=== PATIENT | female | born 1995 | race Hispanic/Latino ===

== ENCOUNTER 2016-07-20 14:35 | Emergency (ER) | payer OTHER ==
[2016-07-20] MEDS ORDERED: ACETAMINOPHEN 325 MG TAB As Ordered ONE (16:08)
[2016-07-20 16:24] LABS: BASO # 0.2 K/mm3 (0.0-0.2); BASO % 1.9 % (0.0-1.0); EOS # 0.2 K/mm3 (0.0-0.50); EOS % 1.6 % (0.0-3.0); LARGE UNSTAINED CELL # 0.1 K/mm3 (0.0-0.4); LARGE UNSTAINED CELL % 1.4 % (0.0-4.0); LYMPH # 2.9 K/mm3 (1.5-6.5); LYMPH % 28.5 % (24.0-44.0); MEAN CORPUSCULAR HGB CONC 31.6 g/dl (32.0-36.5); MEAN CORPUSCULAR VOLUME 91.9 fl (80.0-96.0); MONO # 0.5 K/mm3 (0.0-0.8); MONO % 4.8 % (0.0-5.0); NEUTROPHILS % 61.9 % (36.0-66.0); PLATELET COUNT, AUTOMATED 385 k/mm3 (150-450); RED CELL DISTRIBUTION WIDTH 13.1 % (11.5-14.5); WHITE BLOOD COUNT 9.6 K/mm3 (4.0-10.0)
[2016-07-20 16:42] LABS: CONTROL LINE HCG INT CTR LINE PRESENT
[2016-07-20 16:45] LABS: ANION GAP 7 MEQ/L (8-16); BLOOD UREA NITROGEN 11 MG/DL (7-18); CALCIUM LEVEL 9.4 MG/DL (8.5-10.1); CARBON DIOXIDE LEVEL 28 MEQ/L (21-32); CHLORIDE LEVEL 107 MEQ/L (98-107); CREATININE FOR GFR 0.74 MG/DL (0.55-1.02); GLUCOSE, FASTING 90 MG/DL (70-105); SODIUM LEVEL 142 MEQ/L (136-145)
--- NOTE | 2016-07-20 17:41 | EDDOCDS ---
Physician Documentation [facility] Name: Ryan Adhikari Age: 20 yrs Sex: Female : 1995 Arrival Date: 07/20/2016 Time: 14:35 Bed PR Private MD: Other - Complete Info On Cds Disposition: 07/20/16 17:31 Discharged to Home/Self Care. Impression: Abdominal and pelvic pain, Irregular menstruation, unspecified. - Condition is Stable. - Discharge Instructions: Pelvic Pain, Female, Abnormal Uterine Bleeding, [id number]. - Medication Reconciliation, Local Pharmacy Hours form. - Follow up: Private Physician; When: Call to arrange an appointment; Reason: Recheck today's complaints, Continuance of care. Follow up: Schuyler Thompson MD; When: Call to arrange an appointment; Reason: Recheck today's complaints, Continuance of care. - Problem is an ongoing problem. - Symptoms are unchanged. Historical: - Allergies: No known drug Allergies; - Home Meds: 1. none - PMHx: none; - PSHx: oral surgery; - Social history: Smoking status: Patient states was never smoker of tobacco. No barriers to communication noted, The patient speaks fluent [place], Speaks appropriately for age. - Family history: Not pertinent. - : The pt / caregiver states he / she is not on anticoagulants. Home medication list is obtained from the patient. - Exposure Risk Screening:: None identified. 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 6 in. (167.64 cm); Pain 8/10; 16:14 BP 122 / 80 RA Sitting (auto/lg); Pulse 102; Resp 16; Pulse Ox 98% on R/A; Pain 7/10; sew 17:37 BP 129 / 74; Pulse 73; Resp 18; Temp 99.0(TE); Pulse Ox 96% on R/A; Pain 3/10; ck1 14:36 Body Mass Index 29.05 (81.65 kg, 167.64 cm) sew MDM: 14:52 UCG by Nursing ordered. ck1 14:53 UA Ordered. EDMS 14:53 Urine Culture Ordered. EDMS 15:14 UA Reviewed. sd1 16:06 Acetaminophen Tablet 975 mg PO once ordered. mo1 16:07 -US Pelvic Non-Ob Complete Ordered. EDMS 16:07 CBC with Diff Ordered. EDMS 16:07 BMP Ordered. EDMS 16:07 HCG,Serum Qualitative Ordered. EDMS 16:07 Rh Only Ordered. EDMS 16:07 DUPLEX SCAN LIMITED (DOPPLER)+US Ordered. EDMS 16:23 Transvaginal NON- US Ordered. EDMS 16:29 CBC with Diff Reviewed. mo1 16:49 Rh Only Reviewed. mo1 16:49 HCG,Serum Qualitative Reviewed. mo1 16:49 BMP Reviewed. mo1 17:30 [facility] Payment Agreement was scanned into [employer] and attached to record. [facility] 17:30 Financial registration complete. [facility] Point of Care Testing: Urine : 14:56 hCG Reading: Negative; Control Reading: Positive; mlb1 Ranges: Administered Medications: 16:11 Drug: Acetaminophen 975 mg [acetaminophen 325 mg tablet (3 tabs)] Route: PO; mlb1 Signatures: Dispatcher [employer] Estefani Knight MD MD sd1 Kika HillRN RN ck1 Meliton Ramos PA PA mo1 Kelsey Cavazos gjb Meliton Corbin RN mlb1 The chart was reviewed and I authenticate all verbal orders and agree with the evaluation and treatment provided.Attachments: 17:30 [facility] Payment Agreement [facility] MTDD
--- NOTE | 2016-07-20 17:41 | EDDOCDS ---
Nurse's Notes [facility] Name: Ryan Adhikari Age: 20 yrs Sex: Female : 1995 Arrival Date: 07/20/2016 Time: 14:35 Bed PR1 / 25 Private MD: Stephani - Complete Info On Cds Diagnosis: Abdominal and pelvic pain;Irregular menstruation, unspecified Presentation: 07/20 14:45 Presenting complaint: Patient states: No menstrual cycle for 2 months, pelvic pain ck1 since last month. Reports urinary frequency, denies burning or vaginal discharge. States could not get into PCP for test. Adult Sepsis Screening: The patient does not have new or worsening altered mentation. Patient's respiratory rate is less than 22. Systolic blood pressure is greater than 100. Patient has a qSOFA score of 0- Negative Sepsis Screen. Suicide/Homicide risk assessment- the patient denies having any suicidal and/or homicidal ideations and does not present with any other emotional, behavioral or mental health complaints. Status: The patient is a dependent. Transition of care: patient was not received from another setting of care. 14:45 Acuity: SALTY Level 3 ck1 14:45 Method Of Arrival: Walkin/Carried/Asstd ck1 Triage Assessment: 14:48 General: Appears in no apparent distress, comfortable, Behavior is appropriate for age, ck1 cooperative. Pain: Location: pelvis Pain currently is 8 out of 10 on a pain scale. HIV screening NA for this visit Offered previously. GI: Reports nausea. : Reports urinary frequency Denies burning with urination, discharge, vaginal bleeding. Derm: Skin is intact, is healthy with good turgor, Skin is pink, warm & dry. 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 none - PMHx: none; - PSHx: oral surgery; - Social history: Smoking status: Patient states was never smoker of tobacco. No barriers to communication noted, The patient speaks fluent Cameroonian, Speaks appropriately for age. - Family history: Not pertinent. - : The pt / caregiver states he / she is not on anticoagulants. Home medication list is obtained from the patient. - Exposure Risk Screening:: None identified. Screenin:27 Screening information is obtained from the patient. Fall risk: No risks identified. mlb1 Assistance ADL's: requires no assistance with activities of daily living. Abuse/DV Screen: The patient / caregiver reports he/she is: not in a situation that causes fear, pain or injury. Nutritional screening: No deficits noted. Advance Directives: Currently, there is no health care proxy. home support is adequate. Assessment: 17:39 General: Appears in no apparent distress, comfortable, Behavior is appropriate for age, ck1 cooperative. Pain: Location: pelvis Pain currently is 3 out of 10 on a pain scale. Neurological: Level of Consciousness is awake, alert, obeys commands, Oriented to person, place, time. Respiratory: Respiratory effort is unlabored, Respiratory pattern is regular, symmetrical. Derm: Skin is intact, is healthy with good turgor, Skin is pink, warm & dry. Vital Signs: 14:36 BP 166 / 96; Pulse 115; Resp 16; Temp 100.1(T); Pulse Ox 100% on R/A; Weight 81.65 kg; sew Height 5 ft. 6 in. (167.64 cm); Pain 8/10; 16:14 BP 122 / 80 RA Sitting (auto/lg); Pulse 102; Resp 16; Pulse Ox 98% on R/A; Pain 7/10; sew 17:37 BP 129 / 74; Pulse 73; Resp 18; Temp 99.0(TE); Pulse Ox 96% on R/A; Pain 3/10; ck1 14:36 Body Mass Index 29.05 (81.65 kg, 167.64 cm) [facility] Vitals: 14:36 Log In Time: July 20, 2016 at 14:20. [facility] ED Course: 14:36 Patient visited by Estefani Rai. sew 14:36 Other - Complete Info On Cds is Private Physician. sew 14:36 Patient moved to Waiting sew 14:38 Patient visited by Estefani Rai. sew 14:38 Patient moved to Pre RCE sew 14:47 Triage Initiated ck1 14:55 Urine Culture Sent. mlb1 14:55 UA Sent. mlb1 15:25 Patient moved to Triage 1 jrd 15:27 Patient visited by Kika Hill RN. ck1 15:59 Meliton Ramos PA is PHCP. mo1 15:59 Estefani Kulkarni MD is Attending Physician. mo1 16:05 Patient visited by Meliton Ramos PA. mo1 16:13 Rh Only Sent. mlb1 16:13 HCG,Serum Qualitative Sent. mlb1 16:13 BMP Sent. mlb1 16:13 CBC with Diff Sent. mlb1 16:15 Patient visited by Estefani Rai. sew 16:15 Patient moved to TR1 sew 17:19 Patient name changed from Valeriah\S\\S\Onofre\S\ to Valeriah\S\ \S\Onofre. EDMS 17:27 Patient moved to PR1 / 25 mlb1 17:30 ON LICENSE OF [facility] Payment Agreement was scanned into [employer] and attached to record. gjb 17:31 Patient visited by Kika Hill RN. ck1 17:31 Schuyler Thompson MD is Referral Physician. mo1 17:38 No IV's were initiated during this patient's visit. No procedures done that require ck1 assistance. 17:39 The patient / caregiver is instructed regarding the plan of care and ED course. ck1 Administered Medications: 16:11 Drug: Acetaminophen 975 mg [acetaminophen 325 mg tablet (3 tabs)] Route: PO; mlb1 Point of Care Testing: Urine : 14:56 hCG Reading: Negative; Control Reading: Positive; mlb1 Ranges: Order Results: Lab Order: UA; SPEC'M 07/20/16 14:54 Test: APPEARANCE, URINE; Value: CLEAR; Range: CLEAR; Status: F Test: COLOR, URINE; Value: YELLOW; Range: YELLOW; Status: F Test: PH,URINE; Value: 7.0; Range: 5.0-9.0; Units: UNITS; Status: F Test: SPECIFIC GRAVITY URINE AUTO; Value: 1.014; Range: 1.002-1.035; Status: F Test: PROTEIN, URINE AUTO; Value: NEGATIVE; Range: NEGATIVE; Units: mg/dL; Status: F Test: GLUCOSE, URINE (UA) AUTO; Value: NEGATIVE; Range: NEGATIVE; Units: mg/dL; Status: F Test: KETONE, URINE AUTO; Value: NEGATIVE; Range: NEGATIVE; Units: mg/dL; Status: F Test: UROBILINOGEN, URINE AUTO; Value: 0.2; Range: 0.0-2.0; Units: mg/dL; Status: F Test: BILIRUBIN, URINE AUTO; Value: NEGATIVE; Range: NEGATIVE; Status: F Test: NITRITE, URINE AUTO; Value: NEGATIVE; Range: NEGATIVE; Status: F Test: LEUKOCYTE ESTERASE, URINE AUTO; Value: NEGATIVE; Range: NEGATIVE; Status: F Test: BLOOD, URINE BLOOD; Value: 2+; Range: NEGATIVE; Abnormal: Above high normal; Status: F Test: WBC, URINE AUTO; Value: 2; Range: 0-3; Units: /HPF; Status: F Test: RBC, URINE AUTO; Value: 9; Range: 0-3; Abnormal: Above high normal; Units: /HPF; Status: F Test: BACTERIA, URINE AUTO; Value: 1+; Range: NEGATIVE; Abnormal: Above high normal; Status: F Test: SQUAMOUS EPITHELIAL CELL UR AU; Value: 5; Range: 0-6; Units: /HPF; Status: F Test: HYALINE CAST, URINE AUTO; Value: 0; Range: 0-1; Units: /LPF; Status: F Lab Order: CBC with Diff; SPEC'M 07/20/16 16:12 Test: WHITE BLOOD COUNT; Value: 9.6; Range: 4.0-10.0; Units: K/mm3; Status: F Test: RED BLOOD COUNT; Value: 4.87; Range: 4.00-5.40; Units: M/mm3; Status: F Test: HEMOGLOBIN; Value: 14.1; Range: 12.0-16.0; Units: g/dl; Status: F Test: HEMATOCRIT; Value: 44.8; Range: 36.0-47.0; Units: %; Status: F Test: MEAN CORPUSCULAR VOLUME; Value: 91.9; Range: 80.0-96.0; Units: fl; Status: F Test: MEAN CORPUSCULAR HEMOGLOBIN; Value: 29.0; Range: 27.0-33.0; Units: pg; Status: F Test: MEAN CORPUSCULAR HGB CONC; Value: 31.6; Range: 32.0-36.5; Abnormal: Below low normal; Units: g/dl; Status: F Test: RED CELL DISTRIBUTION WIDTH; Value: 13.1; Range: 11.5-14.5; Units: %; Status: F Test: PLATELET COUNT, AUTOMATED; Value: 385; Range: 150-450; Units: k/mm3; Status: F Test: NEUTROPHILS %; Value: 61.9; Range: 36.0-66.0; Units: %; Status: F Test: LYMPH %; Value: 28.5; Range: 24.0-44.0; Units: %; Status: F Test: MONO %; Value: 4.8; Range: 0.0-5.0; Units: %; Status: F Test: EOS %; Value: 1.6; Range: 0.0-3.0; Units: %; Status: F Test: BASO %; Value: 1.9; Range: 0.0-1.0; Abnormal: Above high normal; Units: %; Status: F Test: LARGE UNSTAINED CELL %; Value: 1.4; Range: 0.0-4.0; Units: %; Status: F Test: NEUTROPHILS #; Value: 6.0; Range: 1.8-7.7; Units: K/mm3; Status: F Test: LYMPH #; Value: 2.9; Range: 1.5-6.5; Units: K/mm3; Status: F Test: MONO #; Value: 0.5; Range: 0.0-0.8; Units: K/mm3; Status: F Test: EOS #; Value: 0.2; Range: 0.0-0.50; Units: K/mm3; Status: F Test: BASO #; Value: 0.2; Range: 0.0-0.2; Units: K/mm3; Status: F Test: LARGE UNSTAINED CELL #; Value: 0.1; Range: 0.0-0.4; Units: K/mm3; Status: F Lab Order: [facility]; SPEC'M 07/20/16 16:12 Test: GLUCOSE, FASTING; Value: 90; Range: 70-105; Units: MG/DL; Status: F Test: BLOOD UREA NITROGEN; Value: 11; Range: 7-18; Units: MG/DL; Status: F Test: CREATININE FOR GFR; Value: 0.74; Range: 0.55-1.02; Units: MG/DL; Status: F Test: SODIUM LEVEL; Value: 142; Range: 136-145; Units: MEQ/L; Status: F Test: POTASSIUM SERUM; Value: 4.0; Range: 3.5-5.1; Units: MEQ/L; Status: F Test: CHLORIDE LEVEL; Value: 107; Range: 98-107; Units: MEQ/L; Status: F Test: CARBON DIOXIDE LEVEL; Value: 28; Range: 21-32; Units: MEQ/L; Status: F Test: ANION GAP; Value: 7; Range: 8-16; Abnormal: Below low normal; Units: MEQ/L; Status: F Test: CALCIUM LEVEL; Value: 9.4; Range: 8.5-10.1; Units: MG/DL; Status: F Lab Order: HCG,Serum Qualitative; SPEC'M 07/20/16 16:12 Test: HCG, SERUM QUALITATIVE; Value: NEGATIVE; Range: NEGATIVE; Status: F Lab Order: Rh Only; SPEC'M 07/20/16 16:12 Test: RH; Value: POSITIVE; Status: F Outcome: 17:31 Discharge ordered by Provider. mo1 17:38 Discharge Assessment: Patient awake, alert and oriented x 3. No cognitive and/or ck1 functional deficits noted. Patient verbalized understanding of disposition instructions. patient administered narcotics - no. The following High Risk Discharge criteria are identified: None. Discharged to home ambulatory. Condition: stable. Discharge instructions given to patient, Instructed on discharge instructions, follow up and referral plans. medication usage, Demonstrated understanding of instructions, medications, Pt was receptive of discharge instructions/ teaching. Ultrasound Study completed. Property :Personal belongings accompany Pt. 17:40 Patient left the ED. ck1 Signatures: Dispatcher [employer] Meliton Hart RN RN mlb1 Kika Hill RN RN ck1 Estefani Rai Michael, PA PA mo1 Slava Green, [employer] Kelsey Kwan Corrections: (The following items were deleted from the chart) 17:39 17:38 No special radiology studies were completed ck1 ck1 MTDD
--- NOTE | 2016-07-20 17:44 | REP ---
PELVIC ULTRASOUND AND ENDOVAGINAL PROBE ULTRASOUND: 07/20/2016. Clinical history. Right lower quadrant pelvic pain since June. Evaluate for mass and/or torsion. The transabdominal images show the bladder measuring 6.1 x 4 x 7.1 cm, partially filled. Uterus is retroverted and measures 5.4 x 2.6 x 3.6 cm. Central endometrial echogenic stripe has a thickness of 5.4 mm. No fluid in the endometrial cavity or endocervical canal. There is trace free fluid on endovaginal probe in the cul-de-sac. The right ovary is 3.7 x 2.2 x 2.9 cm. The left ovary 3.8 x 2.4 x 2.1 cm. Doppler tracing shows resistive index 0.57 on the right and 0.59 on the left. There is normal color flow in both ovaries, no torsion. There are multiple small peripheral follicles in the left ovary and scattered follicles on the right. Impression: 1. Retroverted uterus without uterine mass or contour abnormality. Endometrial stripe is normal and there is trace free fluid in the cul-de-sac. 2. Multiple small follicles in the ovaries without a cyst or solid mass and with the ovaries generally symmetric in size and with normal color Doppler. No torsion. No mass. Signed by Timmy Ballard MD 07/20/2016 08:15 P
--- NOTE | 2016-07-22 18:40 | EDDOCDS ---
Nurse's Notes [facility] Name: Ryan Adhikari Age: 20 yrs Sex: Female : 1995 Arrival Date: 07/20/2016 Time: 14:35 Bed PR1 / 25 Private MD: Stephani - Complete Info On Cds Diagnosis: Abdominal and pelvic pain;Irregular menstruation, unspecified Presentation: 07/20 14:45 Presenting complaint: Patient states: No menstrual cycle for 2 months, pelvic pain ck1 since last month. Reports urinary frequency, denies burning or vaginal discharge. States could not get into PCP for test. Adult Sepsis Screening: The patient does not have new or worsening altered mentation. Patient's respiratory rate is less than 22. Systolic blood pressure is greater than 100. Patient has a qSOFA score of 0- Negative Sepsis Screen. Suicide/Homicide risk assessment- the patient denies having any suicidal and/or homicidal ideations and does not present with any other emotional, behavioral or mental health complaints. Status: The patient is a dependent. Transition of care: patient was not received from another setting of care. 14:45 Acuity: SALTY Level 3 ck1 14:45 Method Of Arrival: Walkin/Carried/Asstd ck1 Triage Assessment: 14:48 General: Appears in no apparent distress, comfortable, Behavior is appropriate for age, ck1 cooperative. Pain: Location: pelvis Pain currently is 8 out of 10 on a pain scale. HIV screening NA for this visit Offered previously. GI: Reports nausea. : Reports urinary frequency Denies burning with urination, discharge, vaginal bleeding. Derm: Skin is intact, is healthy with good turgor, Skin is pink, warm & dry. 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 none - PMHx: none; - PSHx: oral surgery; - Social history: Smoking status: Patient states was never smoker of tobacco. No barriers to communication noted, The patient speaks fluent Malian, Speaks appropriately for age. - Family history: Not pertinent. - : The pt / caregiver states he / she is not on anticoagulants. Home medication list is obtained from the patient. - Exposure Risk Screening:: None identified. Screenin:27 Screening information is obtained from the patient. Fall risk: No risks identified. mlb1 Assistance ADL's: requires no assistance with activities of daily living. Abuse/DV Screen: The patient / caregiver reports he/she is: not in a situation that causes fear, pain or injury. Nutritional screening: No deficits noted. Advance Directives: Currently, there is no health care proxy. home support is adequate. Assessment: 17:39 General: Appears in no apparent distress, comfortable, Behavior is appropriate for age, ck1 cooperative. Pain: Location: pelvis Pain currently is 3 out of 10 on a pain scale. Neurological: Level of Consciousness is awake, alert, obeys commands, Oriented to person, place, time. Respiratory: Respiratory effort is unlabored, Respiratory pattern is regular, symmetrical. Derm: Skin is intact, is healthy with good turgor, Skin is pink, warm & dry. Vital Signs: 14:36 BP 166 / 96; Pulse 115; Resp 16; Temp 100.1(T); Pulse Ox 100% on R/A; Weight 81.65 kg; sew Height 5 ft. 6 in. (167.64 cm); Pain 8/10; 16:14 BP 122 / 80 RA Sitting (auto/lg); Pulse 102; Resp 16; Pulse Ox 98% on R/A; Pain 7/10; sew 17:37 BP 129 / 74; Pulse 73; Resp 18; Temp 99.0(TE); Pulse Ox 96% on R/A; Pain 3/10; ck1 14:36 Body Mass Index 29.05 (81.65 kg, 167.64 cm) [facility] [place] Vitals: 14:36 Log In Time: July 20, 2016 at 14:20. [facility] [place] ED Course: 14:36 Patient visited by Estefani Rai. sew 14:36 Other - Complete Info On Cds is Private Physician. sew 14:36 Patient moved to Waiting sew 14:38 Patient visited by Estefani Rai. sew 14:38 Patient moved to Pre RCE sew 14:47 Triage Initiated ck1 14:55 Urine Culture Sent. mlb1 14:55 UA Sent. mlb1 15:25 Patient moved to Triage 1 jrd 15:27 Patient visited by Kika Hill RN. ck1 15:59 Meliton Ramos PA is PHCP. mo1 15:59 Estefani Kulkarni MD is Attending Physician. mo1 16:05 Patient visited by Meliton Ramos PA. mo1 16:13 Rh Only Sent. mlb1 16:13 HCG,Serum Qualitative Sent. mlb1 16:13 BMP Sent. mlb1 16:13 CBC with Diff Sent. mlb1 16:15 Patient visited by Estefani Rai. sew 16:15 Patient moved to TR1 sew 17:19 Patient name changed from Valeriah\S\\S\Onofre\S\ to Valeriah\S\ \S\Onofre. EDMS 17:27 Patient moved to PR1 / 25 mlb1 17:30 [facility] Payment Agreement was scanned into [employer] and attached to record. gjb 17:31 Patient visited by Kika Hill RN. ck1 17:31 Schuyler Thompson MD is Referral Physician. mo1 17:38 No IV's were initiated during this patient's visit. No procedures done that require ck1 assistance. 17:39 The patient / caregiver is instructed regarding the plan of care and ED course. ck1 18:10 -US Pelvic Non-Ob Complete Returned. EDMS 18:10 DUPLEX SCAN LIMITED (DOPPLER)+US Returned. EDMS 18:10 Transvaginal NON- US Returned. EDMS 07/21 12:22 T-Sheet-- Draft Copy was scanned into [employer] and attached to record. gb 12:22 Radiology Report was scanned into [employer] and attached to record. gb Administered Medications: 07/20 16:11 Drug: Acetaminophen 975 mg [acetaminophen 325 mg tablet (3 tabs)] Route: PO; mlb1 Point of Care Testing: Urine : 14:56 hCG Reading: Negative; Control Reading: Positive; mlb1 Ranges: Order Results: Lab Order: UA; SPEC'M 07/20/16 14:54 Test: APPEARANCE, URINE; Value: CLEAR; Range: CLEAR; Status: F Test: COLOR, URINE; Value: YELLOW; Range: YELLOW; Status: F Test: PH,URINE; Value: 7.0; Range: 5.0-9.0; Units: UNITS; Status: F Test: SPECIFIC GRAVITY URINE AUTO; Value: 1.014; Range: 1.002-1.035; Status: F Test: PROTEIN, URINE AUTO; Value: NEGATIVE; Range: NEGATIVE; Units: mg/dL; Status: F Test: GLUCOSE, URINE (UA) AUTO; Value: NEGATIVE; Range: NEGATIVE; Units: mg/dL; Status: F Test: KETONE, URINE AUTO; Value: NEGATIVE; Range: NEGATIVE; Units: mg/dL; Status: F Test: UROBILINOGEN, URINE AUTO; Value: 0.2; Range: 0.0-2.0; Units: mg/dL; Status: F Test: BILIRUBIN, URINE AUTO; Value: NEGATIVE; Range: NEGATIVE; Status: F Test: NITRITE, URINE AUTO; Value: NEGATIVE; Range: NEGATIVE; Status: F Test: LEUKOCYTE ESTERASE, URINE AUTO; Value: NEGATIVE; Range: NEGATIVE; Status: F Test: BLOOD, URINE BLOOD; Value: 2+; Range: NEGATIVE; Abnormal: Above high normal; Status: F Test: WBC, URINE AUTO; Value: 2; Range: 0-3; Units: /HPF; Status: F Test: RBC, URINE AUTO; Value: 9; Range: 0-3; Abnormal: Above high normal; Units: /HPF; Status: F Test: BACTERIA, URINE AUTO; Value: 1+; Range: NEGATIVE; Abnormal: Above high normal; Status: F Test: SQUAMOUS EPITHELIAL CELL UR AU; Value: 5; Range: 0-6; Units: /HPF; Status: F Test: HYALINE CAST, URINE AUTO; Value: 0; Range: 0-1; Units: /LPF; Status: F Lab Order: Urine Culture; SPEC'M 07/20/16 14:54 Test: URINE CULTURE; Value: URINE CULTURE RESULT; Status: F Test: URINE CULTURE; Value: NO GROWTH CLINICAL SIGNIFICANCE 2 OR MORE ORGANISMS; Status: F Lab Order: CBC with Diff; SPEC'M 07/20/16 16:12 Test: WHITE BLOOD COUNT; Value: 9.6; Range: 4.0-10.0; Units: K/mm3; Status: F Test: RED BLOOD COUNT; Value: 4.87; Range: 4.00-5.40; Units: M/mm3; Status: F Test: HEMOGLOBIN; Value: 14.1; Range: 12.0-16.0; Units: g/dl; Status: F Test: HEMATOCRIT; Value: 44.8; Range: 36.0-47.0; Units: %; Status: F Test: MEAN CORPUSCULAR VOLUME; Value: 91.9; Range: 80.0-96.0; Units: fl; Status: F Test: MEAN CORPUSCULAR HEMOGLOBIN; Value: 29.0; Range: 27.0-33.0; Units: pg; Status: F Test: MEAN CORPUSCULAR HGB CONC; Value: 31.6; Range: 32.0-36.5; Abnormal: Below low normal; Units: g/dl; Status: F Test: RED CELL DISTRIBUTION WIDTH; Value: 13.1; Range: 11.5-14.5; Units: %; Status: F Test: PLATELET COUNT, AUTOMATED; Value: 385; Range: 150-450; Units: k/mm3; Status: F Test: NEUTROPHILS %; Value: 61.9; Range: 36.0-66.0; Units: %; Status: F Test: LYMPH %; Value: 28.5; Range: 24.0-44.0; Units: %; Status: F Test: MONO %; Value: 4.8; Range: 0.0-5.0; Units: %; Status: F Test: EOS %; Value: 1.6; Range: 0.0-3.0; Units: %; Status: F Test: BASO %; Value: 1.9; Range: 0.0-1.0; Abnormal: Above high normal; Units: %; Status: F Test: LARGE UNSTAINED CELL %; Value: 1.4; Range: 0.0-4.0; Units: %; Status: F Test: NEUTROPHILS #; Value: 6.0; Range: 1.8-7.7; Units: K/mm3; Status: F Test: LYMPH #; Value: 2.9; Range: 1.5-6.5; Units: K/mm3; Status: F Test: MONO #; Value: 0.5; Range: 0.0-0.8; Units: K/mm3; Status: F Test: EOS #; Value: 0.2; Range: 0.0-0.50; Units: K/mm3; Status: F Test: BASO #; Value: 0.2; Range: 0.0-0.2; Units: K/mm3; Status: F Test: LARGE UNSTAINED CELL #; Value: 0.1; Range: 0.0-0.4; Units: K/mm3; Status: F Lab Order: BMP; SPEC'M 07/20/16 16:12 Test: GLUCOSE, FASTING; Value: 90; Range: 70-105; Units: MG/DL; Status: F Test: BLOOD UREA NITROGEN; Value: 11; Range: 7-18; Units: MG/DL; Status: F Test: CREATININE FOR GFR; Value: 0.74; Range: 0.55-1.02; Units: MG/DL; Status: F Test: SODIUM LEVEL; Value: 142; Range: 136-145; Units: MEQ/L; Status: F Test: POTASSIUM SERUM; Value: 4.0; Range: 3.5-5.1; Units: MEQ/L; Status: F Test: CHLORIDE LEVEL; Value: 107; Range: 98-107; Units: MEQ/L; Status: F Test: CARBON DIOXIDE LEVEL; Value: 28; Range: 21-32; Units: MEQ/L; Status: F Test: ANION GAP; Value: 7; Range: 8-16; Abnormal: Below low normal; Units: MEQ/L; Status: F Test: CALCIUM LEVEL; Value: 9.4; Range: 8.5-10.1; Units: MG/DL; Status: F Lab Order: HCG,Serum Qualitative; SPEC'M 07/20/16 16:12 Test: HCG, SERUM QUALITATIVE; Value: NEGATIVE; Range: NEGATIVE; Status: F Lab Order: Rh Only; SPEC'M 07/20/16 16:12 Test: RH; Value: POSITIVE; Status: F Radiology Order: -US Pelvic Non-Ob Complete Test: -US Pelvic Non-Ob Complete REASON FOR EXAMINATION: Adnexal Pain r/o Torsion; PELVIC ULTRASOUND AND ENDOVAGINAL PROBE ULTRASOUND: 07/20/2016.; ; Clinical history. Right lower quadrant pelvic pain since June. Evaluate for; mass and/or torsion.; ; The transabdominal images show the bladder measuring 6.1 x 4 x 7.1 cm, partially; filled. Uterus is retroverted and measures 5.4 x 2.6 x 3.6 cm. Central; endometrial echogenic stripe has a thickness of 5.4 mm. No fluid in the; endometrial cavity or endocervical canal. There is trace free fluid on; endovaginal probe in the cul-de-sac.; ; The right ovary is 3.7 x 2.2 x 2.9 cm. The left ovary 3.8 x 2.4 x 2.1 cm.; Doppler tracing shows resistive index 0.57 on the right and 0.59 on the left.; There is normal color flow in both ovaries, no torsion. There are multiple small; peripheral follicles in the left ovary and scattered follicles on the right.; ; Impression:; ; 1. Retroverted uterus without uterine mass or contour abnormality. Endometrial; stripe is normal and there is trace free fluid in the cul-de-sac.; ; 2. Multiple small follicles in the ovaries without a cyst or solid mass and with; the ovaries generally symmetric in size and with normal color Doppler. No; torsion. No mass.; ; ; Signed by; Timmy Ballard MD 07/20/2016 08:15 P; Radiology Order: DUPLEX SCAN LIMITED (DOPPLER)+US Test: DUPLEX SCAN LIMITED (DOPPLER)+US REASON FOR EXAMINATION: Adnexal Pain r/o Torsion; PELVIC ULTRASOUND AND ENDOVAGINAL PROBE ULTRASOUND: 07/20/2016.; ; Clinical history. Right lower quadrant pelvic pain since June. Evaluate for; mass and/or torsion.; ; The transabdominal images show the bladder measuring 6.1 x 4 x 7.1 cm, partially; filled. Uterus is retroverted and measures 5.4 x 2.6 x 3.6 cm. Central; endometrial echogenic stripe has a thickness of 5.4 mm. No fluid in the; endometrial cavity or endocervical canal. There is trace free fluid on; endovaginal probe in the cul-de-sac.; ; The right ovary is 3.7 x 2.2 x 2.9 cm. The left ovary 3.8 x 2.4 x 2.1 cm.; Doppler tracing shows resistive index 0.57 on the right and 0.59 on the left.; There is normal color flow in both ovaries, no torsion. There are multiple small; peripheral follicles in the left ovary and scattered follicles on the right.; ; Impression:; ; 1. Retroverted uterus without uterine mass or contour abnormality. Endometrial; stripe is normal and there is trace free fluid in the cul-de-sac.; ; 2. Multiple small follicles in the ovaries without a cyst or solid mass and with; the ovaries generally symmetric in size and with normal color Doppler. No; torsion. No mass.; ; ; Signed by; Timmy Ballard MD 07/20/2016 08:15 P; Radiology Order: Transvaginal NON- US Test: Transvaginal NON- US REASON FOR EXAMINATION: EVAL UTERUS AND OVARIES; PELVIC ULTRASOUND AND ENDOVAGINAL PROBE ULTRASOUND: 07/20/2016.; ; Clinical history. Right lower quadrant pelvic pain since June. Evaluate for; mass and/or torsion.; ; The transabdominal images show the bladder measuring 6.1 x 4 x 7.1 cm, partially; filled. Uterus is retroverted and measures 5.4 x 2.6 x 3.6 cm. Central; endometrial echogenic stripe has a thickness of 5.4 mm. No fluid in the; endometrial cavity or endocervical canal. There is trace free fluid on; endovaginal probe in the cul-de-sac.; ; The right ovary is 3.7 x 2.2 x 2.9 cm. The left ovary 3.8 x 2.4 x 2.1 cm.; Doppler tracing shows resistive index 0.57 on the right and 0.59 on the left.; There is normal color flow in both ovaries, no torsion. There are multiple small; peripheral follicles in the left ovary and scattered follicles on the right.; ; Impression:; ; 1. Retroverted uterus without uterine mass or contour abnormality. Endometrial; stripe is normal and there is trace free fluid in the cul-de-sac.; ; 2. Multiple small follicles in the ovaries without a cyst or solid mass and with; the ovaries generally symmetric in size and with normal color Doppler. No; torsion. No mass.; ; ; Signed by; Timmy Ballard MD 07/20/2016 08:15 P; Outcome: 17:31 Discharge ordered by Provider. mo1 17:38 Discharge Assessment: Patient awake, alert and oriented x 3. No cognitive and/or ck1 functional deficits noted. Patient verbalized understanding of disposition instructions. patient administered narcotics - no. The following High Risk Discharge criteria are identified: None. Discharged to home ambulatory. Condition: stable. Discharge instructions given to patient, Instructed on discharge instructions, follow up and referral plans. medication usage, Demonstrated understanding of instructions, medications, Pt was receptive of discharge instructions/ teaching. Ultrasound Study completed. Property :Personal belongings accompany Pt. 17:40 Patient left the ED. ck1 Signatures: Dispatcher [employer] EDMS Valerie Mayorga, Reg Reg Meliton Ricci RN RN mlb1 Kika Hill RN RN ck1 Estefani Rai Michael, PA PA mo1 Slava Green, TOM INSPECTOR [employer]DITIONING d Kelsey Cavazos Corrections: (The following items were deleted from the chart) 17:39 17:38 No special radiology studies were completed ck1 ck1 Chart Complete MTDD
--- NOTE | 2016-07-22 18:40 | EDDOCDS ---
Physician Documentation [facility] Name: Ryan Adhikari Age: 20 yrs Sex: Female : 1995 Arrival Date: 07/20/2016 Time: 14:35 Bed PR Private MD: Other - Complete Info On Cds Disposition: 07/20/16 17:31 Discharged to Home/Self Care. Impression: Abdominal and pelvic pain, Irregular menstruation, unspecified. - Condition is Stable. - Discharge Instructions: Pelvic Pain, Female, Abnormal Uterine Bleeding, [id number]. - Medication Reconciliation, Local Pharmacy Hours form. - Follow up: Private Physician; When: Call to arrange an appointment; Reason: Recheck today's complaints, Continuance of care. Follow up: Schuyler Thompson MD; When: Call to arrange an appointment; Reason: Recheck today's complaints, Continuance of care. - Problem is an ongoing problem. - Symptoms are unchanged. Historical: - Allergies: No known drug Allergies; - Home Meds: 1. none - PMHx: none; - PSHx: oral surgery; - Social history: Smoking status: Patient states was never smoker of tobacco. No barriers to communication noted, The patient speaks fluent Chinese, Speaks appropriately for age. - Family history: Not pertinent. - : The pt / caregiver states he / she is not on anticoagulants. Home medication list is obtained from the patient. - Exposure Risk Screening:: None identified. 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 6 in. (167.64 cm); Pain 8/10; 16:14 BP 122 / 80 RA Sitting (auto/lg); Pulse 102; Resp 16; Pulse Ox 98% on R/A; Pain 7/10; sew 17:37 BP 129 / 74; Pulse 73; Resp 18; Temp 99.0(TE); Pulse Ox 96% on R/A; Pain 3/10; ck1 14:36 Body Mass Index 29.05 (81.65 kg, 167.64 cm) sew MDM: 14:52 UCG by Nursing ordered. ck1 14:53 UA Ordered. EDMS 14:53 Urine Culture Ordered. EDMS 15:14 UA Reviewed. sd1 16:06 Acetaminophen Tablet 975 mg PO once ordered. mo1 16:07 -US Pelvic Non-Ob Complete Ordered. EDMS 16:07 CBC with Diff Ordered. EDMS 16:07 BMP Ordered. EDMS 16:07 HCG,Serum Qualitative Ordered. EDMS 16:07 Rh Only Ordered. EDMS 16:07 DUPLEX SCAN LIMITED (DOPPLER)+US Ordered. EDMS 16:23 Transvaginal NON- US Ordered. EDMS 16:29 CBC with Diff Reviewed. mo1 16:49 Rh Only Reviewed. mo1 16:49 HCG,Serum Qualitative Reviewed. mo1 16:49 BMP Reviewed. mo1 17:30 [facility] Payment Agreement was scanned into [employer] and attached to record. [facility] 17:30 Financial registration complete. [facility] 07/21 12: T-Sheet-- Draft Copy was scanned into [employer] and attached to record. 12: Radiology Report was scanned into [employer] and attached to record. Point of Care Testing: Urine : 07/20 14:56 hCG Reading: Negative; Control Reading: Positive; mlb1 Ranges: Administered Medications: 16:11 Drug: Acetaminophen 975 mg [acetaminophen 325 mg tablet (3 tabs)] Route: PO; mlb1 Signatures: Dispatcher [employer] Estefani Knight MD MD sd1 Valerie Mayorga, Reg Reg Kika Olsen RN RN ck1 Meliton Ramos PA PA mo1 Kelsey Cavazos b Meliton Corbin RN mlb1 The chart was reviewed and I authenticate all verbal orders and agree with the evaluation and treatment provided.Attachments: 17:30 [facility] Payment Agreement [facility] 07/21 12:22 T-Sheet-- Draft Copy gb Chart Complete MTDD
--- NOTE | 2016-07-22 18:40 | EDDOCDS ---
Physician Documentation [facility] Name: Ryan Adhikari Age: 20 yrs Sex: Female : 1995 Arrival Date: 07/20/2016 Time: 14:35 Bed PR Private MD: Other - Complete Info On Cds Disposition: 07/20/16 17:31 Discharged to Home/Self Care. Impression: Abdominal and pelvic pain, Irregular menstruation, unspecified. - Condition is Stable. - Discharge Instructions: Pelvic Pain, Female, Abnormal Uterine Bleeding, [id number]. - Medication Reconciliation, Local Pharmacy Hours form. - Follow up: Private Physician; When: Call to arrange an appointment; Reason: Recheck today's complaints, Continuance of care. Follow up: Schuyler Thompson MD; When: Call to arrange an appointment; Reason: Recheck today's complaints, Continuance of care. - Problem is an ongoing problem. - Symptoms are unchanged. Historical: - Allergies: No known drug Allergies; - Home Meds: 1. none - PMHx: none; - PSHx: oral surgery; - Social history: Smoking status: Patient states was never smoker of tobacco. No barriers to communication noted, The patient speaks fluent Luxembourgish, Speaks appropriately for age. - Family history: Not pertinent. - : The pt / caregiver states he / she is not on anticoagulants. Home medication list is obtained from the patient. - Exposure Risk Screening:: None identified. 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 6 in. (167.64 cm); Pain 8/10; 16:14 BP 122 / 80 RA Sitting (auto/lg); Pulse 102; Resp 16; Pulse Ox 98% on R/A; Pain 7/10; sew 17:37 BP 129 / 74; Pulse 73; Resp 18; Temp 99.0(TE); Pulse Ox 96% on R/A; Pain 3/10; ck1 14:36 Body Mass Index 29.05 (81.65 kg, 167.64 cm) sew MDM: 14:52 UCG by Nursing ordered. ck1 14:53 UA Ordered. EDMS 14:53 Urine Culture Ordered. EDMS 15:14 UA Reviewed. sd1 16:06 Acetaminophen Tablet 975 mg PO once ordered. mo1 16:07 -US Pelvic Non-Ob Complete Ordered. EDMS 16:07 CBC with Diff Ordered. EDMS 16:07 BMP Ordered. EDMS 16:07 HCG,Serum Qualitative Ordered. EDMS 16:07 Rh Only Ordered. EDMS 16:07 DUPLEX SCAN LIMITED (DOPPLER)+US Ordered. EDMS 16:23 Transvaginal NON- US Ordered. EDMS 16:29 CBC with Diff Reviewed. mo1 16:49 Rh Only Reviewed. mo1 16:49 HCG,Serum Qualitative Reviewed. mo1 16:49 BMP Reviewed. mo1 17:30 [facility] Payment Agreement was scanned into [employer] and attached to record. [facility] [place] 17:30 Financial registration complete. [facility] [place] 07/21 12: T-Sheet-- Draft Copy was scanned into [employer] and attached to record. 12: Radiology Report was scanned into [employer] and attached to record. Point of Care Testing: Urine : 07/20 14:56 hCG Reading: Negative; Control Reading: Positive; mlb1 Ranges: Administered Medications: 16:11 Drug: Acetaminophen 975 mg [acetaminophen 325 mg tablet (3 tabs)] Route: PO; mlb1 Signatures: Dispatcher [employer] Estefani Knight MD MD sd1 Valerie Mayorga, Reg Reg Kika Olsen RN RN ck1 Meliton Ramos PA PA mo1 Kelsey Cavazos b Meliton Corbin RN mlb1 The chart was reviewed and I authenticate all verbal orders and agree with the evaluation and treatment provided.Attachments: 17:30 [facility] [place] Agreement [facility] [place] 07/21 12:22 T-Sheet-- Draft Copy gb Chart Complete MTDD
== END 2016-07-20 17:40 | disposition home or self-care (01) ==
LOC: M ED 14:35
DX: R10.2 Pelvic and perineal pain (principal); N92.6 Irregular menstruation, unspecified

== ENCOUNTER → 2017-01-08 | Outpatient (REF) | payer OTHER ==
[2017-01-08 20:03] LABS: HCG, SERUM QUANTITATIVE < 1.0 MIU/ML
[2017-01-08 20:05] LABS: LUTEINIZING HORMONE 11.5 mIU/mL; PROLACTIN 10.7 NG/ML
[2017-01-08 20:06] LABS: FOLLICLE STIMULATING HORMONE 6.3 mIU/mL
[2017-01-16 00:11] LABS: 17 HYDROXY PROGESTERONE 114 ng/dL (.)
== END ==
LOC: M LAB REF 17:48
PROVIDERS: ATTEND Obstetrics & Gynecology
DX: N91.1 Secondary amenorrhea (principal)

== ENCOUNTER → 2017-08-06 | Outpatient (REF) | payer OTHER ==
[2017-08-07 12:45] LABS: INFLUENZA A AMPLIFICATION NEGATIVE (NEGATIVE); INFLUENZA B AMPLIFICATION NEGATIVE (NEGATIVE)
== END ==
LOC: M SFHCLERA 19:43
DX: R53.81 Other malaise (principal)
CPT/HCPCS: 87502